=== PATIENT | female | born 1945 | race African-American/Black ===

== ENCOUNTER → 2020-08-25 | Outpatient (CLI) | payer MEDICARE ==
[2015-11-09 12:20] VITALS: BP 146/66
[~2020-08-25] MED LIST: ASPI-482 PO; ATOR20TA58 PO; BUSP5TAB PO; CLOP75TA PO; FLUO40CA2 PO; GABA-586 PO; HYDR-2145 PO; LORA0.5T PO; LOSA50TA86 PO; MEMA10TA PO; METO-247 PO; MONT10TA80 PO; OMEG1CAP16 PO; PANT40TA6 PO; RISP1TAB88 PO; SIMV20TA18 PO; [UNRECOGNIZED DRUG - CODE] MC
--- NOTE | 2020-08-26 08:46 | RAD ---
INDICATION: Reason: LARGE SOFT TISSUE MASS POSTERIOR CERVICAL SPINE / Spl. Instructions: / History: COMPARISON: None. FINDINGS: Focused ultrasound images are obtained at the neck posteriorly at the region of concern for lump. No subcutaneous mass or fluid collection is seen on focused ultrasound. IMPRESSION: * No subcutaneous mass or fluid collection is identified on focused ultrasound. Electronically signed by: Bon Bailey MD (08/26/2020 8:44 AM) [id number]
== END ==
LOC: US 10:38
PROVIDERS: ATTEND Registered Nurse
DX: D17.9 Benign lipomatous neoplasm, unspecified (principal)
CPT/HCPCS: 76536

== ENCOUNTER → 2021-01-23 | Outpatient (CLI) | payer MEDICARE ==
[2015-11-09 12:20] VITALS: BP 146/66
--- NOTE | 2021-01-26 12:34 | RAD ---
DATE: 01/23/2021 EXAM: MAMMO BRANDON SCREENING BILATERAL HISTORY: Screening COMPARISON: 03/12/2018, 11/21/2016, 10/11/2016, 11/23/2014 This study was interpreted with the benefit of Computerized Aided Detection (CAD). Breast Density: SCATTERED The breast parenchyma shows scattered fibroglandular densities. Breast parenchyma level B. FINDINGS: No mass, suspicious calcification, or architectural distortion in either breast. An intramammary lymph node in the outer right breast is unchanged. IMPRESSION: No evidence of malignancy. BI-RADS CATEGORY: 1 NEGATIVE RECOMMENDED FOLLOW-UP: 12M 12 MONTH FOLLOW-UP PQRS compliance statement: Patient information was entered into a reminder system with a target due date for the next mammogram. Mammography is a sensitive method for finding small breast cancers, but it does not detect them all and is not a substitute for careful clinical examination. A negative mammogram does not negate a clinically suspicious finding and should not result in delay in biopsying a clinically suspicious abnormality. "Our facility is accredited by the [employer] Mammography Program."
== END ==
LOC: MAMMO 09:36
PROVIDERS: ATTEND Family Medicine
DX: Z12.31 Encounter for screening mammogram for malignant neoplasm of breast (principal)
CPT/HCPCS: 77063; 77067

== ENCOUNTER 2021-02-12 03:57 | Observation (INO) | payer MEDICARE ==
[~2021-02-12] VITALS: Ht 154.9 cm; Wt 89.5 kg
[2021-02-12] MEDS ORDERED: IV RINGERS SOLUTION,LACTATED 1,000 ML IV SCH (04:30)
--- NOTE | 2021-02-12 05:07 | RAD ---
STUDY: CT head without contrast INDICATION: Tremors. Altered mental status. COMPARISON: 06/30/2011 TECHNIQUE: Axial CT imaging through the head without the use of intravenous contrast. Sagittal and co sadie reformats were obtained. One or more of the following individualized dose reduction techniques were utilized for this examinat ion: 1. Automated exposure control 2. Adjustment of the mA and/or kV according to patient size 3. Use of iterative reconstruction technique. FINDINGS: No acute intracranial hemorrhage. No mass effect, midline shift or hydrocephalus. Santiago-white matter d ifferentiation is maintained. White matter findings typical of mild chronic microvascular ischemic change. Intracranial calcific at herosclerosis. Intact calvarium. Normally aerated mastoid air cells, middle ears and partially visualized paranasal sinuses. IMPRESSION: No acute intracranial abnormality by CT. Electronically signed by: FREIDA BECK MD (02/12/2021 5:05 AM) [facility]
[2021-02-12 05:11] LABS: BASO % 0 % (0-3); EOS % 1 % (0-3); HEMATOCRIT 37.8 % (36.0-47.0); HEMOGLOBIN 12.1 g/dL (12.0-15.5); LYMPH # 0.6 x10^3/uL (1.0-4.8); LYMPH % 7 % (24-48); MEAN CORPUSCULAR HEMOGLOBIN 33 pg (25-35); MEAN CORPUSCULAR HGB CONC 32 g/dL (31-37); MEAN CORPUSCULAR VOLUME 102 fL (79-100); MONO # 0.2 x10^3/uL (0.0-1.1); MONO % 2 % (0-9); NEUT # 7.6 x10^3uL (1.8-7.7); NEUT % 90 % (31-73); PLATELET COUNT 213 x10^3/uL (140-400); RED BLOOD COUNT 3.69 x10^6/uL (3.50-5.40); RED CELL DISTRIBUTION WIDTH 14.3 % (11.5-14.5); WHITE BLOOD COUNT 8.4 x10^3/uL (4.0-11.0)
[2021-02-12 05:22] LABS: CALCIUM 8.9 mg/dL (8.5-10.1); GFR 29.5; POTASSIUM 4.2 mmol/L (3.5-5.1)
[2021-02-12] MEDS ORDERED: ACETAMINOPHEN 500 MG TABLET PO ONE (05:30)
[2021-02-12 05:34] LABS: ALBUMIN 3.5 g/dL (3.4-5.0); DIRECT BILIRUBIN 0.2 mg/dL (0.0-0.2); MAGNESIUM 1.5 mg/dL (1.8-2.4); TOTAL PROTEIN 6.9 g/dL (6.4-8.2)
--- NOTE | 2021-02-12 06:03 | RAD ---
Study: XR CHEST 2V Indication: Chest pain. Comparison: 11/09/2015 Findings: Unchanged cardiomediastinal silhouette. The amrita are within normal limits. No pleural effusion, pneum othorax or lobar consolidation. Impression: No acute radiographic abnormality of the chest. Electronically signed by: FREIDA BECK MD (02/12/2021 6:01 AM) [facility]
--- NOTE | 2021-02-12 06:12 | EKG ---
[address] [address] Test Date: 2021-02-12 Test Time: 04:19:11 Pat Name: NELDA RAMOS Department: Room: Gender: F Chief Of Surgery: RADHA : 1945 Requested By: PATRICE PALACIOS Order Number: [id number] Reading MD: Measurements Intervals [place] Rate: 97 P: 49 PA: 174 QRS: 30 QRSD: 76 T: 50 QT: 332 QTc: 426 Interpretive Statements SINUS RHYTHM NORMAL ECG RI6.02 No previous ECG available for comparison
--- NOTE | 2021-02-12 06:13 | EKG ---
[address] [address] Test Date: 2021-02-12 Test Time: 05:47:40 Pat Name: NELDA RAMOS Department: Room: Gender: F Tire Installer: RADHA : 1945 Requested By: PATRICE PALACIOS Order Number: [id number] Reading MD: Measurements Intervals [place] Rate: 98 P: 45 PA: 164 QRS: 24 QRSD: 78 T: 62 QT: 328 QTc: 421 Interpretive Statements SINUS RHYTHM NORMAL ECG RI6.02 Compared to ECG 02/12/2021 05:46:37 T-wave abnormality no longer present Possible ischemia no longer present
--- NOTE | 2021-02-12 06:43 | PHYS DOC ---
Past History Past Medical History: Anxiety, Arthritis, Diabetes, High Cholesterol, Hypertension, Seizure, Other Additional Past Medical Histor: back pain (PATRICE CHAVEZ MD) Past Surgical History: Angioplasty, Hysterectomy, Other (PATRICE CHAVEZ MD) Alcohol Use: None Drug Use: None (PATRICE CHAVEZ MD) General Adult EDM: Chief Complaint: CHEST PAIN HPI: HPI: ".. I ve been having some chest pain.. here in center.. but.. I also got the shakes.. my legs and hand...s.. we were watching Ramirez Crowe on TV.. and I thought I should come in and get checked out.;.. I gotta stay healthy.. to take my ... to dialysis... and take care of my Cat.. My cat is callled Geraldine....I ve had him for 4 yrs... now.. He's got a white chin.. and four white paws..." " Well figure out.. What causes my chest pain.. would be my number one . .. Concern.... You [place].. [place] [address].... there ..but when I try to walk that block to post offce .. I get tired and have to rest"... Patient is a 75 year old female who presents with above hx and complaints of central chest pain. Pt. also complaints of " shakes" in her hands and feet. Patient has past medical history of hypertension, diabetes, elevated choleste rol, anxiety, coronary artery disease, and morbid obesity. Patient has history of chronic back pain and has had nerve stimulator placement. Patient with prior history of coronary artery angioplasty with 3 stents. Patient does have a history of previous seizure disorder. Patient is not remember her microchip specialist name currently. Pt. normally follows with Dr. Gretchen Ricci. (PATRICE CHAVEZ MD) Review of Systems: Review of Systems: Constitutional: Denies fever or chills Eyes: Denies change in visual acuity HENT: Denies nasal congestion or sore throat Respiratory: History of wheezing Cardiovascular: Complains of chest pain and ankle edema GI: Denies abdominal pain, nausea, vomiting, bloody stools or diarrhea : Denies dysuria Musculoskeletal: Complains of chronic back pain and bilateral knee joint pain Integument: Denies rash Neurologic: Denies headache, focal weakness or sensory changes Endocrine: Denies polyuria or polydipsia Lymphatic: Denies swollen glands Psychiatric: History of anxiety (PATRICE CHAVEZ MD) Family History: Family History: Noncontributory to presentation (PATRICE CHAVEZ MD) Current Medications: Current Meds: Current Medications Medications (Trade) Dose Ordered Sig/Andrei Start Time Stop Time Status Last Admin Dose Admin Acetaminophen (Tylenol) 1,000 mg 1X ONCE 02/12/21 05:30 02/12/21 05:31 DC Lactated Ringer's 1,000 ml @ 100 mls/hr Q10H 02/12/21 04:30 02/12/21 14:29 02/12/21 05:02 100 MLS/HR (PATRICE CHAVEZ MD) Allergies: Allergies: Allergies Coded Allergies Type Severity Reaction Last Updated Verified aspirin Allergy Unknown 11/09/15 Yes Penicillins Adverse Reaction Severe Anaphylaxis 06/17/13 No (PATRICE CHAVEZ MD) Physical Exam: PE: Constitutional: Appears in no acute distress, non-toxic appearance. [] HENT: Normocephalic, atraumatic, bilateral external ears normal, oropharynx moist, no oral exudates, nose normal. [] Eyes: PERRLA, EOMI, conjunctiva normal, no discharge. [] Neck: Normal range of motion, no tenderness, supple, no stridor. More than 17 inches circumference Cardiovascular: Tachycardia heart rate regular rhythm, no murmur []. PMI slightly to the left Lungs & Thorax: Bilateral breath sounds equal apex with scattered wheezes on auscultation [] Abdomen: Bowel sounds normal, soft, no tenderness, no masses, no pulsatile mas ses. Morbid obesity. Skin: Warm, dry, no erythema, no rash. [] Back: No tenderness, no CVA tenderness. [] Extremities: No tenderness, no cyanosis, no clubbing, ROM intact, bilateral ankle edema. No cording appreciated Neurologic: Alert and oriented X 3, moves extremities on request, does have di stal sensory, no focal deficits noted. Tremors. DTRs +2 patella and brachial. Psychologic: Affect anxious , judgement normal, mood normal. [] (PATRICE CHAVEZ MD) PE: Constitutional: Well developed, well nourished, no acute distress, non-toxic appearance HENT: Normocephalic, atraumatic Eyes: Conjunctiva normal, no discharge Neck: Normal range of motion, supple Lungs & Thorax: No respiratory distress, equal chest rise and fall Abdomen: Soft, no tenderness Skin: Warm, dry, no erythema, no rash Extremities: ROM intact, no edema Neurologic: Alert and oriented X 3, speech normal Psychologic: Affect normal, judgment normal (WILLIAN MCFARLANE DO) Current Patient Data: Labs: Laboratory Tests Test 02/12/21 04:08 02/12/21 04:55 Glucose (Fingerstick) 152 mg/dL (70-99) H White Blood Count 8.4 x10^3/uL (4.0-11.0) Red Blood Count 3.69 x10^6/uL (3.50-5.40) Hemoglobin 12.1 g/dL (12.0-15.5) Hematocrit 37.8 % (36.0-47.0) Mean Corpuscular Volume 102 fL (79-100) H Mean Corpuscular Hemoglobin 33 pg (25-35) Mean Corpuscular Hemoglobin Concent 32 g/dL (31-37) Red Cell Distribution Width 14.3 % (11.5-14.5) Platelet Count 213 x10^3/uL (140-400) Neutrophils (%) (Auto) 90 % (31-73) H Lymphocytes (%) (Auto) 7 % (24-48) L Monocytes (%) (Auto) 2 % (0-9) Eosinophils (%) (Auto) 1 % (0-3) Basophils (%) (Auto) 0 % (0-3) Neutrophils # (Auto) 7.6 x10^3uL (1.8-7.7) Lymphocytes # (Auto) 0.6 x10^3/uL (1.0-4.8) L Monocytes # (Auto) 0.2 x10^3/uL (0.0-1.1) Eosinophils # (Auto) 0.0 x10^3/uL (0.0-0.7) Basophils # (Auto) 0.0 x10^3/uL (0.0-0.2) Prothrombin Time 9.8 SEC (9.4-11.4) Prothrombin Time INR 0.9 (0.9-1.1) Activated Partial Thromboplast Time < 21 SEC (23-33) L D-Dimer (Amanda) 2.51 mg/L (0.00-0.50) H Sodium Level 142 mmol/L (136-145) Potassium Level 4.2 mmol/L (3.5-5.1) Chloride Level 106 mmol/L (98-107) Carbon Dioxide Level 27 mmol/L (21-32) Anion Gap 9 (6-14) Blood Urea Nitrogen 26 mg/dL (7-20) H Creatinine 2.0 mg/dL (0.6-1.0) H Estimated GFR (Cockcroft-Gault) 29.5 Glucose Level 167 mg/dL (70-99) H Calcium Level 8.9 mg/dL (8.5-10.1) Magnesium Level 1.5 mg/dL (1.8-2.4) L Total Bilirubin 1.0 mg/dL (0.2-1.0) Direct Bilirubin 0.2 mg/dL (0.0-0.2) Aspartate Amino Transferase (AST) 13 U/L (15-37) L Alanine Aminotransferase (ALT) 21 U/L (14-59) Alkaline Phosphatase 86 U/L (46-116) Creatine Kinase 60 U/L (26-192) Troponin I Quantitative < 0.017 ng/mL (0-0.055) ZP-Ylk-O-Type Natriuretic Peptide 95 pg/mL (0-124) Total Protein 6.9 g/dL (6.4-8.2) Albumin 3.5 g/dL (3.4-5.0) Lipase 232 U/L (73-393) Vital Signs: Vital Signs Date Time Temp Pulse Resp B/P (MAP) Pulse Ox O2 Delivery O2 Flow Rate FiO2 02/12/21 04:00 98.5 98 20 148/73 96 Room Air (PATRICE CHAVEZ MD) EKG: EKG: My interpretation EKG shows a sinus rhythm at 97 bpm. No acute morphology. No findings acute STEMI with contralateral changes. Time of EKGs 4:r 19 hours [] (PATRICE CHAVEZ MD) Radiology/Procedures: Radiology/Procedures: [][address] [address] IMAGING REPORT Signed PATIENT: NELDA RAMOS ACCOUNT: [id number] : 1945 LOCATION: ER AGE: 75 SEX: F EXAM STATUS: REG ER ORD. PHYSICIAN: PATRICE CHAVEZ MD REASON: cp PROCEDURE: CHEST PA & LATERAL Study: XR CHEST 2V Indication: Chest pain. Comparison: 11/09/2015 Findings: Unchanged cardiomediastinal silhouette. The armita are within normal limits. No pleural effusion, pneumothorax or lobar consolidation. Impression: No acute radiographic abnormality of the chest. Electronically signed by: FREIDA BECK MD (02/12/2021 6:01 AM) [facility] DICTATED AND SIGNED BY: FREIDA BECK MD DATE: 02/12/21 0600 CC: PATRICE CHAVEZ MD; GRETCHEN RICCI ~MTH0 [address] [address] IMAGING REPORT Signed PATIENT: NELDA RAMOS ACCOUNT: [id number] : 1945 LOCATION: ER AGE: 75 SEX: F EXAM STATUS: REG ER ORD. PHYSICIAN: PATRICE CHAVEZ MD REASON: Tremors, Altered mental status PROCEDURE: CT HEAD WO CONTRAST STUDY: CT head without contrast INDICATION: Tremors. Altered mental status. COMPARISON: 06/30/2011 TECHNIQUE: Axial CT imaging through the head without the use of intravenous contrast. Sagittal and coronal reformats were obtained. One or more of the following individualized dose reduction techniques were utilized for this examination: 1. Automated exposure control 2. Adjustment of the mA and/or kV according to patient size 3. Use of iterative reconstruction technique. FINDINGS: No acute intracranial hemorrhage. No mass effect, midline shift or hydrocephalus. Santiago-white matter differentiation is maintained. White matter findings typical of mild chronic microvascular ischemic change. Intracranial calcific atherosclerosis. Intact calvarium. Normally aerated mastoid air cells, middle ears and partially visualized paranasal sinuses. IMPRESSION: No acute intracranial abnormality by CT. Electronically signed by: FREIDA BECK MD (02/12/2021 5:05 AM) [facility] DICTATED AND SIGNED BY: FREIDA BECK MD DATE: 02/12/21 0502 CC: PATRICE CHAVEZ MD; GRETCHEN RICCI ~MTH0 0 (PATRICE CHAVEZ MD) Radiology/Procedures: PROCEDURE: CHEST PA & LATERAL Study: XR CHEST 2V Indication: Chest pain. Comparison: 11/09/2015 Findings: Unchanged cardiomediastinal silhouette. The amrita are within normal limits. No pleural effusion, pneumothorax or lobar consolidation. Impression: No acute radiographic abnormality of the chest. Electronically signed by: FREIDA BECK MD (02/12/2021 6:01 AM) [facility] PROCEDURE: CT HEAD WO CONTRAST STUDY: CT head without contrast INDICATION: Tremors. Altered mental status. COMPARISON: 06/30/2011 TECHNIQUE: Axial CT imaging through the head without the use of intravenous contrast. Sagittal and coronal reformats were obtained. One or more of the following individualized dose reduction techniques were utilized for this examination: 1. Automated exposure control 2. Adjustment of the mA and/or kV according to patient size 3. Use of iterative reconstruction technique. FINDINGS: No acute intracranial hemorrhage. No mass effect, midline shift or hydrocephalus. Santiago-white matter differentiation is maintained. White matter findings typical of mild chronic microvascular ischemic change. Intracranial calcific atherosclerosis. Intact calvarium. Normally aerated mastoid air cells, middle ears and partially visualized paranasal sinuses. IMPRESSION: No acute intracranial abnormality by CT. Electronically signed by: FREIDA BECK MD (02/12/2021 5:05 AM) [facility] (WILLIAN MCFARLANE DO) Heart Score: HEART Score for Chest Pain: HEART Score for Chest Pain Response (Comments) Value History Slighlty/Non-Suspicious 0 ECG Normal 0 Age > 65 2 Risk Factors 1 or 2 Risk Factors 1 Troponin < Normal Limit 0 Total 3 Risk Factors: Risk Factors: DM, Current or recent (<one month) smoker, HTN, HLP, family history of CAD, obesity. Risk Scores: Score 0 - 3: 2.5% MACE over next 6 weeks - Discharge Home Score 4 - 6: 20.3% MACE over next 6 weeks - Admit for Clinical Observation Score 7 - 10: 72.7% MACE over next 6 weeks - Early Invasive Strategies (PATRICE CHAVEZ MD) C/O Chest Pain: Yes HEART Score for Chest Pain: HEART Score for Chest Pain Response (Comments) Value History Moderately Suspicious 1 ECG Normal 0 Age > 65 2 Risk Factors >3 Risk Factors or Hx CAD 2 Troponin < Normal Limit 0 Total 5 (WILLIAN MCFARLANE DO) Course & Med Decision Making: Course & Med Decision Making Pertinent Labs and Imaging studies reviewed. (See chart for details) Patient endorsed to at shift change he will make disposition of pt. Impression: 1. Chest pain 2. Morbid obesity 3. History of diabetes= 152 4. Anxiety 5. History of hypertension 6. Chronic back pain 7. History of "seizure-like/shaking" ? [] (PATRICE CHAVEZ MD) Course & Med Decision Making 0600- Sign out received from Dr. Chavez for patient with c/o chest pain. Significant cardiac risk factors. EKG stable. CT head and CXR reviewed. Labs pending at time of sign out. Troponin WNL. D-dimer elevated. Unable to perform CTA given GFR. (renal insufficiency appears chronic per [employer] review) HEART score 5. Patient seen and evaluated by myself. Sats stable and denies shortness of breath. No calf tenderness or swelling appreciated. Denies history of DVT/PE. ASA provided. Patient requiring admission for further evaluation and treatment. Discussed with Dr. Cervantes (hospitalist) who is in agreement with admission. Consult placed to cardiology. Discussed findings and plan with patient, who acknowledges understanding and agreement. (WILLIAN MCFARLANE DO) Dragon Disclaimer: Dragon Disclaimer: This electronic medical record was generated, in whole or in part, using a voice recognition dictation system. (PATRICE CHAVEZ MD) Departure Departure: Impression: Primary Impression: Chest pain Qualified Codes: R07.9 - Chest pain, unspecified Additional Impression: Elevated d-dimer Disposition: ADMITTED INPATIENT Admitting Physician: Cory Cervantes (WILLIAN MCFARLANE DO) Condition: STABLE Referrals: GRETCHEN RICCI (PCP) Derrick Disclaimer This chart was dictated in whole or in part using Voice Recognition software in a busy, high-work load, and often noisy Emergency Department environment. It may contain unintended and wholly unrecognized errors or omissions. (PATRICE CHAVEZ MD) PATRICE CHAVEZ MD Feb 12, 2021 06:42 MCFARLANEWILLIAN DO Feb 12, 2021 07:01
[2021-02-12] MEDS ORDERED: ASPIRIN CHEWABLE 81 MG TABLET. PO ONE (07:00)
[2021-02-12] MEDS ORDERED: DEXTROSE 50% 25 GM / 50ML DISP.SYRIN. IV PRN (07:00)
[2021-02-12] MEDS: INSULIN LISPRO 300 UNITS/3 ML VIAL. SQ SCH ×3 (08:00→16:35)
--- NOTE | 2021-02-12 08:09 | PDOC2 ---
DUARTE TREJO CARD MAKER 02/12/21 0809: CARDIAC CONSULT DATE OF CONSULT DOS: DATE: 02/12/21 TIME: 08:00 REASON FOR CONSULT Reason for Consult Chest pain REFERRING PHYSICIAN Referring Physician Dr. Lund SOURCE Source: Chart review, Patient HPI History of Present Illness This is a 75 yo female who presented secondary to chest pain. Patient reports pain began early this morning while watching television. Located in her left chest. Describes as pressure. Has associated "shaking" of her extremities/body. [place] nauseated and had episode of vomiting. Was short of breath and pain was s ignificantly worse with deep breathing. No dizziness, diaphoresis, or palpitations. Pain persisted so she called EMS. Pain resolved in ED following fluids and aspirin and has not returned. Does have a history of CAD s/p PCI/stents. Reports most recent stents a couple of years ago. Follows with [facility] cardiology. Has appointment scheduled for the end of the month. PAST MEDICAL HISTORY Cardiovascular: CAD, HTN, hyperipidemia CENTRAL NERVOUS SYSTEM: Seizure GI: GERD Psych: Anxiety Musculoskeletal: Other (chronic back pain with stimulator implant ) Renal/: Chronic renal insuff Endocrine: Diabetes PAST SURGICAL HISTORY Past Surgical History: Appendectomy, Cholecystectomy, Hysterectomy FAMILY HISTORY Family History: Heart Disease SOCIAL HISTORY Smoke: No ALCOHOL: none Drugs: None Lives: Alone CURRENT MEDICATIONS Current Medications Current Medications Lactated Ringer's 1,000 ml @ 100 mls/hr Q10H IV Last administered on 02/12/21at 05:02; Start 02/12/21 at 04:30; Stop 02/12/21 at 14:29 Acetaminophen (Tylenol) 1,000 mg 1X ONCE PO Last administered on 02/12/21at 05:47; Start 02/12/21 at 05:30; Stop 02/12/21 at 05:31; Status DC Fentanyl Citrate (Fentanyl 2ml Vial) 50 mcg PRN Q2HR PRN IVP PAIN; Start 02/12/21 at 07:00 Insulin Human Lispro (HumaLOG) 0-5 UNITS TIDWMEALS SQ ; Start 02/12/21 at 08:00 Dextrose (Dextrose 50%-Water Syringe) 12.5 gm PRN Q15MIN PRN IV SEE COMMENTS; Start 02/12/21 at 07:00 Aspirin (Aspirin Chewable) 324 mg 1X ONCE PO Last administered on 02/12/21at 07:36; Start 02/12/21 at 07:00; Stop 02/12/21 at 07:04; Status DC Active Scripts Active Reported Aspir 81 (Aspirin) 81 Mg Tablet.dr 81 Mg PO Hydrochlorothiazide 25 Mg Tablet 25 Mg PO Simvastatin 20 Mg Tablet 20 Mg PO Risperidone 1 Mg Tablet 1 Mg PO Phenytoin 500 Gm Powder 500 Gm MC Pantoprazole Sodium 40 Mg Tablet.dr 40 Mg PO Namenda (Memantine Hcl) 10 Mg Tablet 10 Mg PO Montelukast Sodium 10 Mg Tablet 10 Mg PO Metoprolol Succinate 100 Mg Tab.er.24h 100 Mg PO Losartan Potassium 50 Mg Tablet 50 Mg PO Lorazepam 0.5 Mg Tablet 0.5 Mg PO Gabapentin 300 Mg Capsule 300 Mg PO Fluoxetine Hcl 40 Mg Capsule 40 Mg PO Fish Oil 1,000 Mg Softgel (Witten-3 Fatty Acids/Fish Oil) 1 Each Capsule 1 Each PO Clopidogrel (Clopidogrel Bisulfate) 75 Mg Tablet 75 Mg PO Buspirone Hcl 5 Mg Tablet 5 Mg PO Atorvastatin Calcium 20 Mg Tablet 20 Mg PO ALLERGIES Allergies: Coded Allergies: Penicillins (Unverified Adverse Reaction, Severe, Anaphylaxis, 06/17/13) reported by the patient ROS Review of Systems 14 point ROS conducted with pertinent positives noted above in HPI PHYSICAL EXAM General: Alert, Oriented X3, Cooperative, No acute distress HEENT: Atraumatic Lungs: Clear to auscultation Heart: Regular rate Abdomen: Soft, Other (obese) Extremities: No edema Skin: No breakdown Neuro: Normal speech, Sensation intact Psych/Mental Status: Mental status NL, Mood NL MUSCULOSKELETAL: Osteoarthritic changes both hands VITALS Vital Signs Vital Signs Date Time Temp Pulse Resp B/P (MAP) Pulse Ox O2 Delivery O2 Flow Rate FiO2 02/12/21 07:12 96 18 109/66 (80) 96 Room Air 02/12/21 04:00 98.5 LABS LABS Laboratory Tests Test 02/12/21 04:08 02/12/21 04:55 02/12/21 07:10 Glucose (Fingerstick) 152 mg/dL (70-99) White Blood Count 8.4 x10^3/uL (4.0-11.0) Red Blood Count 3.69 x10^6/uL (3.50-5.40) Hemoglobin 12.1 g/dL (12.0-15.5) Hematocrit 37.8 % (36.0-47.0) Mean Corpuscular Volume 102 fL (79-100) Mean Corpuscular Hemoglobin 33 pg (25-35) Mean Corpuscular Hemoglobin Concent 32 g/dL (31-37) Red Cell Distribution Width 14.3 % (11.5-14.5) Platelet Count 213 x10^3/uL (140-400) Neutrophils (%) (Auto) 90 % (31-73) Lymphocytes (%) (Auto) 7 % (24-48) Monocytes (%) (Auto) 2 % (0-9) Eosinophils (%) (Auto) 1 % (0-3) Basophils (%) (Auto) 0 % (0-3) Neutrophils # (Auto) 7.6 x10^3uL (1.8-7.7) Lymphocytes # (Auto) 0.6 x10^3/uL (1.0-4.8) Monocytes # (Auto) 0.2 x10^3/uL (0.0-1.1) Eosinophils # (Auto) 0.0 x10^3/uL (0.0-0.7) Basophils # (Auto) 0.0 x10^3/uL (0.0-0.2) Prothrombin Time 9.8 SEC (9.4-11.4) Prothromb Time International Ratio 0.9 (0.9-1.1) Activated Partial Thromboplast Time < 21 SEC (23-33) D-Dimer (Amanda) 2.51 mg/L (0.00-0.50) Sodium Level 142 mmol/L (136-145) Potassium Level 4.2 mmol/L (3.5-5.1) Chloride Level 106 mmol/L (98-107) Carbon Dioxide Level 27 mmol/L (21-32) Anion Gap 9 (6-14) Blood Urea Nitrogen 26 mg/dL (7-20) Creatinine 2.0 mg/dL (0.6-1.0) Estimated GFR (Cockcroft-Gault) 29.5 Glucose Level 167 mg/dL (70-99) Calcium Level 8.9 mg/dL (8.5-10.1) Magnesium Level 1.5 mg/dL (1.8-2.4) Total Bilirubin 1.0 mg/dL (0.2-1.0) Direct Bilirubin 0.2 mg/dL (0.0-0.2) Aspartate Amino Transf (AST/SGOT) 13 U/L (15-37) Alanine Aminotransferase (ALT/SGPT) 21 U/L (14-59) Alkaline Phosphatase 86 U/L (46-116) Creatine Kinase 60 U/L (26-192) Troponin I Quantitative < 0.017 ng/mL (0-0.055) < 0.017 ng/mL (0-0.055) ND-Wtm-S-Type Natriuretic Peptide 95 pg/mL (0-124) Total Protein 6.9 g/dL (6.4-8.2) Albumin 3.5 g/dL (3.4-5.0) Lipase 232 U/L (73-393) ASSESSMENT/PLAN Assessment/Plan 1. Chest pain, mixed features; AMI ruled out. 2. CAD s/p PCI/stents; follows with [facility] cardiology 3. Hypertension; labile 4. Hyperlipidemia; statin 5. Diabetes, II 6. CKD 7. Hypomagnesemia 8. Obesity Recommendations Resume secondary prevention measures Obtain cardiac records from [facility] Replace Mg Will need further ischemia evaluation; most probably on an outpatient basis Supportive care Further pending review of records SOLA CHAVARRIA MD 02/12/21 1701: CARDIAC CONSULT ASSESSMENT/PLAN Assessment/Plan Patient seen and examined. Agree with GUNNER'S MATE's assessment and plan. Chest pain with atypical features. Myocardial infarction has been ruled out. Patient has known history of coronary artery disease and usually follows with [facility] cardiology. Plan for outpatient ischemic evaluation with primary plate keeper. Thank you for your consultation. DUARTE TREJO APRN Feb 12, 2021 08:09 SOLA CHAVARRIA MD Feb 12, 2021 17:01
[2021-02-12] MEDS ORDERED: MAGNESIUM SULFATE 2GM 50 ML IV ONE (08:30)
[2021-02-12 08:41] VITALS: BP 105/63
[2021-02-12 10:57] VITALS: BP 138/77
[2021-02-12] MEDS: CLOPIDOGREL BISULFATE 75 MG TABLET PO SCH (11:14)
[2021-02-12] MEDS: ASPIRIN ENTERIC COATED 81 MG TABLET.DR. PO SCH (11:14)
[2021-02-12] MEDS: LOSARTAN 50 MG TABLET. PO SCH (11:14)
[2021-02-12] MEDS ORDERED: oxyCODONE IR 5 MG TABLET PO PRN (12:00)
[2021-02-12] MEDS ORDERED: PREG50CA PO (12:07)
[2021-02-12] MEDS ORDERED: GLIP5TAB10 PO (12:07)
[2021-02-12] MEDS ORDERED: OXYC5TAB4 PO (12:07)
[2021-02-12] MEDS ORDERED: ACET325T9 PO (12:07)
[2021-02-12] MEDS ORDERED: ATOR40TA59 PO (12:07)
[2021-02-12] MEDS ORDERED: FLUO10CA15 PO (12:07)
[2021-02-12] MEDS ORDERED: TIZANIDINE HCL2 M1 PO (12:07)
[2021-02-12] MEDS ORDERED: DIAZ5TAB4 PO (12:07)
[2021-02-12] MEDS ORDERED: METO50TA4 PO (12:07)
[2021-02-12] MEDS ORDERED: tiZANidine 4 MG TABLET. PO PRN (12:30)
--- NOTE | 2021-02-12 12:46 | HP ---
ADMIT DATE: 02/12/2021 ATTENDING PHYSICIAN: Dr. Cervantes. CHIEF COMPLAINT: Chest pressure. HISTORY OF PRESENT ILLNESS: The patient is a pleasant 75-year-old female admitted through the ED with vague symptoms of left-sided chest pressure. She also has some shakes in her hands and feet. She was concerned about a stroke. She has chronic kidney disease, previous seizure disorder. She has seen a production illustrator, stated to have a further evaluation on the 16 of this month, a week from today. Dr. Balderas is her primary care physician. She was admitted then for rule out coronary ischemia. Her first cardiac enzymes were negative. EKG and chest x-ray nondiagnostic. She has had a previous angioplasty supposedly in the past. We do not have those records from [facility], we are in the process of tracking that down. PAST MEDICAL HISTORY: Significant for hypertension, hyperlipidemia, seizure disorder, type 2 diabetes, generalized anxiety. She has had a hysterectomy and angioplasty. She also has chronic kidney disease stage IV. SOCIAL HISTORY: She is a nonsmoker and nondrinker. ALLERGIES: SHE HAS ALLERGIES TO PENICILLIN, WHICH CAUSES A RASH. CURRENT MEDICINES: Include the following: She was on scheduled aspirin, Lipitor, BuSpar, Plavix, 40 mg of Prozac daily, Neurontin, hydrochlorothiazide, lorazepam, losartan, Namenda, propranolol, montelukast, omega-3 fish oil, Protonix, phenytoin, risperidone and Zocor. FAMILY HISTORY: Mom at age 91 of old age. Father of lung cancer at age 54. She was originally born in [place]. 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 REVIEW OF SYSTEMS: No recent COVID exposure. The rest of the detailed review of systems turned to be negative. PHYSICAL EXAMINATION: GENERAL: When I saw her, this is a pleasant, middle-aged female. VITAL SIGNS: On admission showed a blood pressure of 148/73, pulse 90 and regular. She was afebrile, oxygen saturation 96% on room air. HEENT: Head is without trauma. Pupils are reactive. Sclerae nonicteric. Oropharynx clear. NECK: Supple. LUNGS: Clear to auscultation. CARDIOVASCULAR: Regular heart tones. No gallops. ABDOMEN: Soft. EXTREMITIES: Without edema. NEUROLOGIC: Focally intact. No deficits. PERTINENT LABORATORY STUDIES: Hemoglobin 12.1 grams, white count 8400. MCV is elevated at 102 interestingly. The electrolytes are within normal range. BUN 26, creatinine 2.0 mg/dL. Nonfasting blood sugar 152. Troponin initially was negative, 0.01. The obligatory CT of the head showed no acute changes. Chest x-ray was clear. ASSESSMENT: 1. This 75-year-old female has nonspecific chest pressure. She has had a history of coronary artery disease. She is admitted for serial enzymes and rule out myocardial infarction. 2. Idiopathic seizure disorder. 3. Hypertension. 4. Degenerative arthritis. 5. Chronic kidney disease stage III. PLAN: 1. Observation status. 2. Serial cardiac enzymes. 3. Formal cardiology consultation. 4. Continue home meds. PHILIP/BENITO/ROSIBEL DR: Abraham TID: [id number] CC: GRETCHEN BALDERAS
[2021-02-12 14:54] VITALS: BP 134/68
[2021-02-12] MEDS: PREGABALIN 25 MG CAPSULE PO SCH ×2 (16:12→19:57)
[2021-02-12] MEDS: glipiZIDE 5 MG TABLET PO SCH (16:12)
[2021-02-12 18:51] VITALS: BP 144/69
[2021-02-12 19:09] LABS: THYROID STIM HORMONE (TSH) 1.813 uIU/mL (0.358-3.740)
[2021-02-12] MEDS ORDERED: ATORVASTATIN CALCIUM 20 MG TABLET PO SCH (21:00)
[2021-02-12 23:00] VITALS: BP 158/84
[2021-02-13 03:00] VITALS: BP 153/68
[2021-02-13 06:04] VITALS: BP 132/76
[2021-02-13] MEDS ORDERED: PANTOPRAZOLE 40 MG TABLET. PO SCH (07:00)
[2021-02-13] MEDS: INSULIN LISPRO 300 UNITS/3 ML VIAL. SQ SCH (08:00)
[2021-02-13] MEDS: PREGABALIN 25 MG CAPSULE PO SCH (08:39)
[2021-02-13] MEDS: LOSARTAN 50 MG TABLET. PO SCH (08:39)
[2021-02-13] MEDS: CLOPIDOGREL BISULFATE 75 MG TABLET PO SCH (08:40)
[2021-02-13] MEDS: ASPIRIN ENTERIC COATED 81 MG TABLET.DR. PO SCH (08:40)
[2021-02-13] MEDS: glipiZIDE 5 MG TABLET PO SCH (08:40)
[2021-02-13 08:43] VITALS: BP 132/76
--- NOTE | 2021-02-13 08:57 | PDOC ---
CARDIO Progress Notes Date & Time Date of Service DATE: 02/13/21 TIME: 08:56 Time of Evaluation 08:56 Subjective Notes No chest pain, shortness of breath, dizziness Vitals Vitals Vital Signs Date Time Temp Pulse Resp B/P (MAP) Pulse Ox O2 Delivery O2 Flow Rate FiO2 02/13/21 08:43 94 132/76 02/13/21 06:04 98.2 16 95 Room Air Weight Weight [ ] Input and Output I.O. Intake and Output 02/13/21 07:00 Intake Total 1940 ml Balance 1940 ml Intake Oral 1540 ml Other 400 ml # Voids 6 Laboratory Labs Laboratory Tests Test 02/12/21 04:08 02/12/21 04:55 02/12/21 07:10 02/12/21 10:08 Glucose (Fingerstick) 152 mg/dL (70-99) White Blood Count 8.4 x10^3/uL (4.0-11.0) Red Blood Count 3.69 x10^6/uL (3.50-5.40) Hemoglobin 12.1 g/dL (12.0-15.5) Hematocrit 37.8 % (36.0-47.0) Mean Corpuscular Volume 102 fL (79-100) Mean Corpuscular Hemoglobin 33 pg (25-35) Mean Corpuscular Hemoglobin Concent 32 g/dL (31-37) Red Cell Distribution Width 14.3 % (11.5-14.5) Platelet Count 213 x10^3/uL (140-400) Neutrophils (%) (Auto) 90 % (31-73) Lymphocytes (%) (Auto) 7 % (24-48) Monocytes (%) (Auto) 2 % (0-9) Eosinophils (%) (Auto) 1 % (0-3) Basophils (%) (Auto) 0 % (0-3) Neutrophils # (Auto) 7.6 x10^3uL (1.8-7.7) Lymphocytes # (Auto) 0.6 x10^3/uL (1.0-4.8) Monocytes # (Auto) 0.2 x10^3/uL (0.0-1.1) Eosinophils # (Auto) 0.0 x10^3/uL (0.0-0.7) Basophils # (Auto) 0.0 x10^3/uL (0.0-0.2) Prothrombin Time 9.8 SEC (9.4-11.4) Prothromb Time International Ratio 0.9 (0.9-1.1) Activated Partial Thromboplast Time < 21 SEC (23-33) D-Dimer (Amanda) 2.51 mg/L (0.00-0.50) Sodium Level 142 mmol/L (136-145) Potassium Level 4.2 mmol/L (3.5-5.1) Chloride Level 106 mmol/L (98-107) Carbon Dioxide Level 27 mmol/L (21-32) Anion Gap 9 (6-14) Blood Urea Nitrogen 26 mg/dL (7-20) Creatinine 2.0 mg/dL (0.6-1.0) Estimated GFR (Cockcroft-Gault) 29.5 Glucose Level 167 mg/dL (70-99) Calcium Level 8.9 mg/dL (8.5-10.1) Magnesium Level 1.5 mg/dL (1.8-2.4) Total Bilirubin 1.0 mg/dL (0.2-1.0) Direct Bilirubin 0.2 mg/dL (0.0-0.2) Aspartate Amino Transf (AST/SGOT) 13 U/L (15-37) Alanine Aminotransferase (ALT/SGPT) 21 U/L (14-59) Alkaline Phosphatase 86 U/L (46-116) Creatine Kinase 60 U/L (26-192) Troponin I Quantitative < 0.017 ng/mL (0-0.055) < 0.017 ng/mL (0-0.055) < 0.017 ng/mL (0-0.055) AQ-Bra-H-Type Natriuretic Peptide 95 pg/mL (0-124) Total Protein 6.9 g/dL (6.4-8.2) Albumin 3.5 g/dL (3.4-5.0) Triglycerides Level 140 mg/dL (0-150) Cholesterol Level 179 mg/dL (0-200) LDL Cholesterol, Calculated 85 mg/dL (0-100) VLDL Cholesterol, Calculated 28 mg/dL (0-40) Non-HDL Cholesterol Calculated 113 mg/dL (0-129) HDL Cholesterol 66 mg/dL (40-60) Cholesterol/HDL Ratio 2.0 Lipase 232 U/L (73-393) Thyroid Stimulating Hormone (TSH) 1.813 uIU/mL (0.358-3.740) Test 02/12/21 11:21 02/12/21 16:26 02/13/21 07:25 Glucose (Fingerstick) 140 mg/dL (70-99) 164 mg/dL (70-99) 116 mg/dL (70-99) Physical Exams HEENT: Neck Supple W Full Motion Chest: Symmetric Lungs: Clear to Auscultation Heart: RRR Abdomen: Soft N/T Extremities: No Edema Neurology: alert, oriented, follow commands Assessment Assessment 1. Chest pain, mixed features; AMI ruled out. 2. CAD s/p PCI/stents; follows with [facility] cardiology 3. Hypertension; labile 4. Hyperlipidemia; statin 5. Diabetes, II 6. CKD 7. Hypomagnesemia 8. Obesity Recommendations Secondary prevention measures Outpatient ischemia evaluation Supportive care Follow up with [facility] cardiology upon discharge DUARTE TREJO APRN Feb 13, 2021 08:57
[2021-02-13] MEDS ORDERED: ASPIRIN ENTERIC COATED 81 MG TABLET.DR. PO SCH (09:00)
[2021-02-13] MEDS ORDERED: METOPROLOL SUCC 24HR ER 50 MG TAB.ER.24H. PO SCH (09:00)
[2021-02-13] MEDS ORDERED: NON FORMULARY ITEM (Atorvastatin Calcium 1 TAB) PO SCH (09:00)
--- NOTE | 2021-02-13 14:22 | DS ---
DATE OF DISCHARGE: 02/13/2021 ATTENDING PHYSICIAN: Dr. Cervantes. FINAL DISCHARGE DIAGNOSES: 1. Atypical chest pain, coronary ischemia ruled out. 2. Known history of coronary artery disease with previous PCI stent, she follows up with [facility]iology. 3. Essential hypertension, stable. 4. Hyperlipidemia. 5. Obesity. 6. Type 2 diabetes. 7. Chronic kidney disease stage III to stage IV. 8. Degenerative arthritis. HISTORY AND PHYSICAL: The patient is a pleasant 75-year-old female, fairly active. She presented with atypical chest pain, left-sided, localized. She had been washing windows and doing some vigorous housework. Because of her history of coronary artery disease, she was admitted for rule out and formal Cardiology consultation. PHYSICAL EXAMINATION: Please see the dictated note. PERTINENT LABORATORY AND X-RAY STUDIES: Nonfasting blood sugar was 116 mg/dL. Admission hemoglobin was 12.1 g/dL with a white count 8400. Electrolytes unremarkable. Cardiac enzymes were negative for coronary ischemia. COURSE IN THE HOSPITAL: The patient was admitted. Home meds were continued. Formal Cardiology consultation had a chance to see her. They felt it was noncardiac in nature. No further testing required at this time. She should follow up with her regular boarder machine at [facility]. By the second hospital day, her pain had subsided. I believe it was more musculoskeletal. She was ready for discharge. Therefore, she is sent home with no new medicine and no changes in her old medicines; they including the following: She should continue her aspirin daily, Lipitor 40 mg daily, Plavix 75 mg daily, Valium p.r.n., fluoxetine 10 mg daily, Neurontin, glipizide, losartan, metoprolol, oxycodone p.r.n., Protonix, Lyrica and tizanidine doses unchanged. She will follow up with her PCP, Dr. Gretchen Balderas. She was discharged then from our hospital in stable condition with explicit and followup care. PHILIP/BRADFORD/CINDI DR: Abraham TID: [id number] CC: GRETCHEN BALDERAS
== END 2021-02-13 10:25 | disposition home or self-care (01) ==
LOC: ER 03:57 → 1 SOUTH 07:06
PROVIDERS: ADMIT Hospitalist; ATTEND Hospitalist
DX: R07.89 Other chest pain (principal); E11.22 Type 2 diabetes mellitus with diabetic chronic kidney disease; I12.9 Hypertensive chronic kidney disease with stage 1 through stage 4 chronic kidney disease, or unspecified chronic kidney disease; N18.4 Chronic kidney disease, stage 4 (severe); E66.01 Morbid (severe) obesity due to excess calories; E78.00 Pure hypercholesterolemia, unspecified; E78.5 Hyperlipidemia, unspecified; E83.42 Hypomagnesemia; F41.1 Generalized anxiety disorder; G40.909 Epilepsy, unspecified, not intractable, without status epilepticus; M54.9 Dorsalgia, unspecified; G89.29 Other chronic pain; I25.10 Atherosclerotic heart disease of native coronary artery without angina pectoris; M19.90 Unspecified osteoarthritis, unspecified site; Z90.710 Acquired absence of both cervix and uterus; Z95.5 Presence of coronary angioplasty implant and graft; Z79.899 Other long term (current) drug therapy
CPT/HCPCS: 36415; 70450; 71046; 80048; 80061; 80076; 82550; 82947; 83690; 83735; 83880; 84443; 84484; 85025; 85379; 85610; 85730; 93005; 96361; 96365; 96366; 96375; 99285; G0378; J3010; J3475; J7120; G0379